=== PATIENT | female | born 2000 | race Caucasian/White ===

== ENCOUNTER → 2023-04-05 | Outpatient (CLI) | payer OTHER | LOC: M RADPRO 11:05 | PROVIDERS: ATTEND Obstetrics & Gynecology | DX: N96 Recurrent pregnancy loss (principal) ==

== ENCOUNTER 2023-06-12 05:59 | Day surgery (SDC) | payer OTHER ==
[~2023-06-12] VITALS: Ht 160 cm; Wt 50.2 kg
[~2023-06-12 05:59] MED LIST: MEDR10TA9 PO
[2023-06-12] MEDS ORDERED: LIDOCAINE 1% MDV 20ML VIAL As Ordered ONE (06:44)
[2023-06-12] MEDS ORDERED: LR 1,000 ML IV SCH ×2 (06:45→08:25)
[2023-06-12] MEDS ORDERED: SILVER NITRATE APPLICATOR (1 = QTY 10) As Ordered ONE ×2 (06:45→08:15)
[2023-06-12] MEDS ORDERED: LIDOCAINE 2% 100MG/5ML SDV (FOR ANES.) As Ordered ONE (07:24)
[2023-06-12] MEDS ORDERED: ONDANSETRON 4MG 2ML VIAL As Ordered ONE (07:24)
[2023-06-12] MEDS ORDERED: propofoL 200 MG/20 ML VIAL As Ordered ONE (07:24)
[2023-06-12] MEDS ORDERED: KETOROLAC 60MG 2ML VIAL As Ordered ONE (07:24)
[2023-06-12] MEDS ORDERED: MIDAZOLAM INJ 2MG/2ML VIAL As Ordered ONE (07:25)
[2023-06-12] MEDS ORDERED: fentaNYL 100 MCG/2 ML INJECTION As Ordered ONE (07:25)
[2023-06-12] MEDS ORDERED: ACETAMINOPHEN 1000MG 100ML IV BAG As Ordered ONE (07:58)
[2023-06-12] MEDS ORDERED: HYDROMORPHONE HCL 0.5 MG/ 0.5 ML SYRINGE IV PRN (08:25)
[2023-06-12] MEDS ORDERED: fentaNYL 100 MCG/2 ML INJECTION IV PRN (08:25)
[2023-06-12] MEDS ORDERED: oxyCODONE 5MG TAB PO PRN ×2 (08:25→09:20)
[2023-06-12] MEDS ORDERED: ONDANSETRON 4MG 2ML VIAL IV PRN (08:25)
[2023-06-12 10:15] VITALS: BP 122/76; TEMP 97.2; O2SAT 99
== END 2023-06-12 10:28 | disposition home or self-care (01) ==
LOC: M SDC 05:59
PROVIDERS: ATTEND Obstetrics & Gynecology
DX: N93.9 Abnormal uterine and vaginal bleeding, unspecified (principal); N96 Recurrent pregnancy loss; N84.0 Polyp of corpus uteri; F17.290 Nicotine dependence, other tobacco product, uncomplicated; Z79.899 Other long term (current) drug therapy
CPT/HCPCS: 58558; 81025; 88305; J0131; J1100; J1885; J2250; J2405; J3010

== ENCOUNTER → 2023-07-12 | Outpatient (CLI) | payer OTHER ==
[~2023-07-12] MED LIST changes: +ISOVUE-300 61% 100ML VIAL As Ordered ONE; +LIDOCAINE 1% MDV 20ML VIAL As Ordered ONE; +PROHANCE 279.3MG/ML 5ML VIAL As Ordered ONE
== END ==
LOC: M RAD 06:31
PROVIDERS: ATTEND Physician Assistant
DX: M25.511 Pain in right shoulder (principal)
CPT/HCPCS: 23350; 73223; 77002; A9576; Q9967